=== PATIENT | male | born 1965 | race Caucasian/White ===

== ENCOUNTER → 2019-04-06 12:57 | Outpatient (CLI) | payer MEDICAID, SELFPAY ==
--- NOTE | 2019-04-06 13:40 | RAD_ITS ---
STUDY: X-RAY - LUMBAR SPINE REASON FOR EXAM: Male, 53 years old. Low back pain and stiffness TECHNIQUE: 3 view(s) of the lumbar spine were obtained. COMPARISON: None FINDINGS: Normal lumbar lordosis. There is no substantial scoliosis. There is a normal alignment of the vertebrae. There is multilevel endplate spondylosis of the lumbar vertebrae. There is multi-level degenerative disc disease with multi-level disc space narrowing. There is no demonstrated fracture. The soft tissue structures are unremarkable. RAD/Lumbar Spine 2 or 3 Views IMPRESSION: Degenerative changes of the spine, as detailed above. Electronically Signed: Jose Leslie MD at 11:01 EST , Service support ,
== END ==
DX: S33.5XXA Sprain of ligaments of lumbar spine, initial encounter (principal)
CPT/HCPCS: 72100

== ENCOUNTER 2021-10-11 12:48 | Emergency (ER) | payer MEDICAID, SELFPAY ==
[2021-10-11 12:49] VITALS: BP 136/83; PULSE 87; RESP 14; TEMP 36.2; O2SAT 98; BMI 20.9
--- NOTE | 2021-10-11 13:15 | EKG12_ITS ---
Test Reason : CP Blood Pressure : / mmHG Vent. Rate : 069 BPM Atrial Rate : 069 BPM P-R Int : 182 ms QRS Dur : 096 ms QT Int : 354 ms P-R-T Axes : 084 083 069 degrees QTc Int : 379 ms Normal sinus rhythm Normal ECG Confirmed by MICHELE MARX, HECTOR ([id number]), multimedia editor LIZA BELL ([id number]) on 10/13/2021 9:16:44 AM Referred By: DC Confirmed By:CHIKA BAUTISTA MD
--- NOTE | 2021-10-11 13:15 | RAD_ITS ---
EXAM: XR RIGHT HIP WITH PELVIS WHEN PERFORMED, 2 OR 3 VIEWS CLINICAL INDICATION: pain TECHNIQUE: Two or three views of the right hip with pelvis when performed. This report was created using [employer] report generation technology. COMPARISON: None. FINDINGS: BONES/JOINTS: No acute abnormality. SOFT TISSUES: Normal. No soft tissue swelling or gas. RAD/HIP, UNI W/ Pelvis 2-3 Views IMPRESSION: No evidence of displaced pelvic or hip fracture. Electronically Signed: Ben Crain MD at 13:55 EDT ,
--- NOTE | 2021-10-11 13:15 | RAD_ITS ---
EXAM: XR LUMBOSACRAL SPINE, 2 OR 3 VIEWS CLINICAL INDICATION: pain back TECHNIQUE: Frontal and lateral views of the lumbar spine and sacrum. This report was created using [employer] report generation technology. COMPARISON: None. FINDINGS: VERTEBRAE: Bilateral vertebral body osteophytosis. Facet arthropathy at L4-5 and L5-S1. Preserved vertebral body height. No fracture. No spondylolisthesis. Preservation of the normal lumbar lordosis. DISC SPACES: No acute findings. No significant disc space. RAD/Lumbar Spine 2 or 3 Views IMPRESSION: Mild spondylosis Electronically Signed: Ben Crain MD at 13:56 EDT ,
--- NOTE | 2021-10-11 13:15 | RAD_ITS ---
EXAM: XR CHEST, 1 VIEW CLINICAL INDICATION: dyspnea TECHNIQUE: Frontal view of the chest. This report was created using [employer] report generation technology. COMPARISON: XR Chest dated june 20 FINDINGS: LUNGS AND PLEURAL SPACES: Hyperinflation suggesting emphysema. No pneumothorax. No effusion. HEART: Normal heart size. MEDIASTINUM: Central airways are unremarkable. No mediastinal or hilar mass. BONES/JOINTS: No acute abnormality. SOFT TISSUES: Normal. RAD/Chest 1 View (Portable) IMPRESSION: COPD. No interval change. Electronically Signed: Ben Crain MD at 13:55 EDT ,
[2021-10-11 13:34] LABS: Absolute Lymphocyte Count 2.47 X10^3/uL (0.83-4.51); Absolute Neutrophil Count 5.8 X10^3/uL (2.0-7.7); Basophil% 1.1 % (0-1); Eosinophil# 0.17 X10^3/uL; Eosinophils% 1.8 % (0-5); Hematocrit 42.6 % (40-54); Hemoglobin 14.2 g/dL (13.0-16.5); Lymphocyte # 2.47 X10^3/ul (0.83-4.51); Lymphocyte % 26.1 % (19-41); Mean Corp Hgb Conc 33.3 g/dL (32-36); Mean Corpuscular Hgb 32.4 pg (27.0-32.0); Mean Corpuscular Volume 97.3 fL (80-94); Mean Platelet Vol. 9.8 fl (6.2-12.0); Monocyte# 0.85 X10^3/uL; NRBC Flagged by Analyzer 0 % (0-5); Neutrophil # 5.84 X10^3/uL (2.7-7.7); Neutrophil % 61.7 % (47-70); Platelet Count 286 K/mm3 (150-450); RBC Distribution Width CV 12.2 % (11.6-14.6); RBC Distribution Width SD 43.8 fl (35.1-43.9); Red Blood Count 4.38 M/mm3 (4.6-6.2); White Blood Count 9.5 K/mm3 (4.4-11.0)
[2021-10-11 13:48] LABS: Anion Gap 5 (5-15); BUN 14 mg/dL (7-18); BUN/Creat Ratio 19.3 RATIO (10-20); Calcium,Total 8.6 mg/dL (8.5-10.1); Chloride 101 mmol/L (98-107); Creatinine, Serum 0.72 mg/dL (0.70-1.30); EST Glomerular Filtration Rate 119 mL/min (>60); Est Glom Filt Rate - Afr Amer 144 mL/min (>60); Estimated Creatinine Clearance 116.34 ml/min; Glucose 84 mg/dL (74-106); Potassium 4.1 mmol/L (3.5-5.1); Sodium Level 136 mmol/L (136-145); Troponin-I HS 4 pg/mL (3.0-78.0)
[2021-10-11 13:52] LABS: D-Dimer Quantitative (DVT/PE) 0.44 FEU/ug/m (0.27-0.49)
[2021-10-11 14:00] LABS: BNP,B-Type NATRIURETIC PEPTIDE 7.2 pg/mL (0-100)
[2021-10-11 14:40] VITALS: O2SAT 99
[2021-10-11 14:48] VITALS: BP 115/75; PULSE 64; RESP 16; O2SAT 99
[2021-10-11 15:05] VITALS: RESP 16
--- NOTE | 2021-10-11 15:12 | EX.ED.DYSGE1 ---
HPI History of Present Illness Chief Complaint: Shortness of Breath Informant: patient Onset/Context/Timing Onset: Days Context: Gradual Onset Timing: Continuous Location: chest Current Severity: Moderate Associated Symptoms Associated Symptoms: Patient also reports pain in his right lower back that radiates down his ri Narrative Narrative: Gradual onset of shortness of breath days ago. Nothing seems to bring this on. Nothing makes it better. He has not at rest. No chest pain. He does have a cough. No sputum. No fevers. No GI symptoms. Smoker. Denies any history of lung disease, heart disease, blood clots. PFSH PFSH Medical History no medical history Home Medications albuterol sulfate 90 mcg/actuation aerosol inhaler (Ventolin HFA) 2 puff inhalation Q4H PRN PRN Wheezing ##1 10/11/21 [Rx Last Taken Unknown] naproxen 500 mg tablet 500 mg PO BID #20 tabs 10/11/21 [Rx Last Taken Unknown] Allergy/AdvReac Type Severity Reaction Status Date / Time No Known Allergies Allergy Verified 10/11/21 12:48 Family History no significant family his Surgical History no surgical history Social History Smoking Status: Current every day smoker tobacco type: cigarettes ROS ROS ED Constitutional Constitutional ED: Denies chills Eyes Eyes: Denies blurry vision ENT ENT ED: Denies ear pain Cardiovascular Cardiovascular: Denies chest pain Respiratory/Chest Respiratory/Chest: Reports cough and dyspnea Gastrointestinal Gastrointestinal: Denies abdominal pain Genitourinary Genitourinary ED: Denies dysuria Musculoskeletal Musculoskeletal: Reports arthralgias, back pain and myalgias Integumentary Denies abscess Neurologic Neurologic: Denies headache(s), paresthesias or weakness Psychiatric Psychiatric: Denies anxiety Endocrine Endocrinology: Denies cold intolerance Hematologic/Lymphatic Hematologic/Lymphatic: Denies easy bruising Allergic/Immunologic Allergic/Immunologic ED: Denies mouth swelling EXAM Physical Exam Const Vital Signs: 10/11/21 12:49 10/11/21 14:40 Temperature 97.2 F L Temperature Source Temporal Pulse Rate 87 Respiratory Rate 14 Respiratory Effort Short of Breath Respiratory Depth Normal Respiratory Pattern Normal Blood Pressure 136/83 H Blood Pressure Mean 100 Pulse Ox 98 Oxygen Delivery Method Room Air Room Air Positive well nourished and well developed General Appearance ED: well developed HEENT Reports moist mucous membranes Eyes EOMs intact bilaterally Chest Wall inspection of chest normal Resp normal respiratory effort and clear to auscultation bilaterally Cardio regular rate and regular rhythm GI normal to inspection, nondistended, normoactive bowel sounds Back/Spine no CVA tenderness Lumbar Spine / Lower Back: Negative for lumbar spinal tenderness Extremity normal to inspection General Extremety ED: Negative for edema or tenderness General Extremity: Negative for edema Neuro oriented x3 Sensorium / Orientation: alert Psych mental status grossly normal Skin no rashes or lesions noted MDM MDM MDM Narrative Medical decision making narrative: EKG was interpreted by me and showed sinus rhythm at a rate of 69. No sign of acute ischemia or infarction pattern. Chest x-ray, hip and pelvis x-ray, and lumbar spine x-rays were reviewed by the radiologist and myself and were unremarkable. Patient's CBC, BNP, BMP, troponin, D-dimer were all unremarkable. COVID test was negative. I am not sure what is causing his dyspnea, but his work-up and exam are fairly reassuring. This may be all related to COPD. He was treated with breathing treatments and an inhaler. Regarding his back and leg pain, I do not believe this represents a DVT. His x-rays were reassuring. [id number] remedies and naproxen for pain. Discharge home. Follow-up with primary care. Return for any new or worsening issues. Impression #1 COPD Impression #2 low back pain Impression #3 right leg pain Lab Data Attestation: I reviewed the patient's lab results. Labs: Laboratory Results - last 24 hr 10/11/21 10/11/21 10/11/21 13:21 13:21 13:21 WBC 9.5 RBC 4.38 L Hgb 14.2 Hct 42.6 MCV 97.3 H MCH 32.4 H MCHC 33.3 RDW Std Deviation 43.8 RDW Coeff of Mary 12.2 Plt Count 286 MPV 9.8 Immature Gran % (Auto) 0.300 Neut % (Auto) 61.7 Lymph % (Auto) 26.1 Child[place] % (Auto) 9.0 Eos % (Auto) 1.8 Baso % (Auto) 1.1 H Absolute Neuts (auto) 5.8 Absolute Lymphs (auto) 2.47 Nucleated RBC % 0 D-Dimer Quant (PE/DVT) 0.44 Sodium 136 Potassium 4.1 Chloride 101 Carbon Dioxide 30.0 Anion Gap 5 BUN 14 Creatinine 0.72 Estim Creat Clear Calc 116.34 Est GFR (MDRD) Af Amer 144 Est GFR (MDRD) Non-Af 119 BUN/Creatinine Ratio 19.3 Glucose 84 Calcium 8.6 Troponin I High Sens 4 B-Natriuretic Peptide 10/11/21 13:21 WBC RBC Hgb Hct MCV MCH MCHC RDW Std Deviation RDW Coeff of Mary Plt Count MPV Immature Gran % (Auto) Neut % (Auto) Lymph % (Auto) Child[place] % (Auto) Eos % (Auto) Baso % (Auto) Absolute Neuts (auto) Absolute Lymphs (auto) Nucleated RBC % D-Dimer Quant (PE/DVT) Sodium Potassium Chloride Carbon Dioxide Anion Gap BUN Creatinine Estim Creat Clear Calc Est GFR (MDRD) Af Amer Est GFR (MDRD) Non-Af BUN/Creatinine Ratio Glucose Calcium Troponin I High Sens B-Natriuretic Peptide 7.2 Radiography Diagnostic Testing: Clinical Impression(s) from Imaging Studies Chest X-Ray 10/11/21 13:15 IMPRESSION: COPD. No interval change. Electronically Signed: Ben Crain MD at 13:55 EDT Reading Location ID and State: [facility] / [place] Tel , Service support , Hip/Pelvis X-Ray 10/11/21 13:15 IMPRESSION: No evidence of displaced pelvic or hip fracture. Electronically Signed: Ben Crain MD at 13:55 EDT Reading Location ID and State: [facility] / [place] Tel , Service support , Lumbar Spine X-Ray 10/11/21 13:15 IMPRESSION: Mild spondylosis Electronically Signed: Ben Crain MD at 13:56 EDT , Discharge Plan Triage Chief Complaint: Shortness of Breath ED Provider: Steven,Rey Dx/Rx/DC Orders Instructions: ED COPD Flare Prescriptions: New naproxen 500 mg tablet 500 mg PO BID Qty: 20 0RF albuterol sulfate [Ventolin HFA] 90 mcg/actuation HFA aerosol inhaler 2 puff inhalation Q4H PRN PRN (Reason: Wheezing) Qty: 1 0RF Primary Care Provider: Care Physician,No Primary Referrals: Darío Barreto MD [Med Staff - Active Staff] - Disposition Disposition: Home, Self Care
== END 2021-10-11 15:28 | disposition home or self-care (01) ==
PROVIDERS: Emergency Provider Emergency Medicine; Visit Provider Emergency Medicine
DX: J44.9 Chronic obstructive pulmonary disease, unspecified (principal); M54.50 Low back pain, unspecified; M79.604 Pain in right leg; F17.210 Nicotine dependence, cigarettes, uncomplicated
CPT/HCPCS: 71045; 72100; 73502; 80048; 83880; 84484; 85025; 85379; 87811; 93005; 99284; A4216